=== PATIENT | male | born 1970 | race Caucasian/White ===

== ENCOUNTER 2021-08-19 01:36 | Emergency (ER) | payer OTHER ==
[~2021-08-19] VITALS: Ht 188 cm; Wt 122.5 kg
[~2021-08-19 01:36] MED LIST: CITALOPRAM 40 MG PO; [UNRECOGNIZED DRUG - OTHER] PO
[2021-08-19 04:13] LABS: Source, Urine Catheter
[2021-08-19 04:16] LABS: Bilirubin, Urine Neg (Neg); Blood, Urine 5+ (Neg); Glucose Qualitative, Urine Neg (Neg); Ketones, Urine Neg (Neg); Leukocyte Esterase, Urine 2+ (Neg); Nitrite, Urine Neg (Neg); Protein, Urine Neg (Neg); Specific Gravity, Urine 1.025 (1.003-1.022); Urobilinogen, Urine NORM (Normal)
[2021-08-19 04:26] LABS: Appearance, Urine Hazy (Clear); Color, Urine Yellow (P-Yellow)
[2021-08-19 04:27] LABS: Amorphous Light (0-Heavy); Bacteria Few /hpf; Mucus Light (0-Heavy); Squamous Epithelial Cells Few /hpf (Few)
[2021-08-19] MEDS ORDERED: CEFP200 PO (04:33)
[2021-08-19] MEDS ORDERED: DOXY100 PO (04:37)
[2021-08-21 04:06] LABS: CHLAMYDIA TRACHOMATIS, NAA Negative (Negative)
== END 2021-08-19 04:43 | disposition home or self-care (01) ==
LOC: ER 01:36
PROVIDERS: Student in an Organized Health Care Education/Training Program
DX: N34.2 Other urethritis (principal); N13.9 Obstructive and reflux uropathy, unspecified; F17.200 Nicotine dependence, unspecified, uncomplicated; Z88.0 Allergy status to penicillin; Z88.6 Allergy status to analgesic agent
CPT/HCPCS: 51701; 81001; 87086; 87491; 87591; 99283-25

== ENCOUNTER 2022-05-30 03:54 | Emergency (ER) | payer OTHER ==
[~2022-05-30] VITALS: Ht 188 cm; Wt 99.8 kg
[~2022-05-30 03:54] MED LIST changes: +CEFP200 PO; +DOXY100 PO
[2022-05-30 06:18] LABS: Source, Urine Clean Catch
[2022-05-30 06:22] LABS: Bilirubin, Urine Neg (Neg); Blood, Urine 4+ (Neg); Glucose Qualitative, Urine Neg (Neg); Ketones, Urine 1+ (Neg); Leukocyte Esterase, Urine 2+ (Neg); Nitrite, Urine Pos (Neg); Protein, Urine 1+ (Neg); Specific Gravity, Urine 1.015 (1.003-1.022); Urobilinogen, Urine 1+ (Normal)
[2022-05-30 06:31] LABS: Appearance, Urine Hazy (Clear); Color, Urine Yellow (P-Yellow)
[2022-05-30 06:35] LABS: Bacteria Mod /hpf; Squamous Epithelial Cells Rare /hpf (Few)
[2022-05-30] MEDS ORDERED: DOXY100 PO (06:52)
[2022-05-30] MEDS ORDERED: CEPH500 PO (06:52)
== END 2022-05-30 07:27 | disposition home or self-care (01) ==
LOC: ER 03:54
PROVIDERS: Emergency Medicine
DX: R30.0 Dysuria (principal); Z88.0 Allergy status to penicillin; Z88.6 Allergy status to analgesic agent; Z87.891 Personal history of nicotine dependence
CPT/HCPCS: 51798; 81001; A9270; J0696